=== PATIENT | male | born 1980 | race Caucasian/White ===

== ENCOUNTER 2018-04-04 01:55 | Emergency (ER) | payer MEDICAID ==
[~2018-04-04] VITALS: Ht 182.9 cm; Wt 72.0 kg
[~2018-04-04 01:55] MED LIST: DIPH-186 PO; DIPH-423 PO; IBUP-1986 PO; LOPE-144 PO; NO HOME MEDS; PROM25TA14 PO
[2018-04-04 02:13] VITALS: BP 140/76
[2018-04-04] MEDS ORDERED: LIDOcaine 1.5% w/epinephrine 1:200,000 5ml ampul IJ ONE (02:50)
[2018-04-04] MEDS ORDERED: sulfamethoxazole/trimethoprim DS (800/160mg) tablet PO ONE (02:50)
[2018-04-04] MEDS ORDERED: LIDOcaine 1% w/EPI 1:100,000 30ml vial (MDV) IJ ONE (03:05)
[2018-04-04] MEDS ORDERED: CEPH500C5 PO (03:12)
[2018-04-04] MEDS ORDERED: SULF1TAB49 PO (03:12)
== END 2018-04-04 03:28 | disposition home or self-care (01) ==
LOC: ER 01:56
DX: L02.416 Cutaneous abscess of left lower limb (principal); L03.116 Cellulitis of left lower limb; G43.909 Migraine, unspecified, not intractable, without status migrainosus; G89.29 Other chronic pain; M54.9 Dorsalgia, unspecified; F12.90 Cannabis use, unspecified, uncomplicated; F15.90 Other stimulant use, unspecified, uncomplicated; F11.90 Opioid use, unspecified, uncomplicated; Z56.0 Unemployment, unspecified; Z59.0 Homelessness
CPT/HCPCS: 10060; 99283; J3490

== ENCOUNTER 2020-01-28 01:09 | Emergency (ER) | payer MEDICAID ==
[~2020-01-28] VITALS: Ht 182.9 cm; Wt 88.6 kg
--- NOTE | 2020-01-28 02:13 | NUR ---
pt with 3 weeks of the polyp in his left nosrtil, 1 day of all over body itching , back pain is chronic, and a lump on the left testicle over the past week, with no change in size over the week.
--- NOTE | 2020-01-28 02:44 | NUR ---
PT IN ROOM AWAITING ER MD. ZHANG REPORTS HIS CHRONIC BACK PAIN IS 4 OUT OF 10.
[2020-01-28] MEDS ORDERED: HYDR-3686 PO (03:44)
[2020-01-28] MEDS ORDERED: diphenhydrAMINE 25mg capsule PO ONE (03:45)
[2020-01-28] MEDS ORDERED: acetaminophen 325mg tablet PO ONE (03:45)
[2020-01-28] MEDS ORDERED: ibuprofen tablet 400 MG TABLET PO ONE (03:45)
[2020-01-28 03:52] VITALS: BP 133/87
== END 2020-01-28 03:54 | disposition home or self-care (01) ==
LOC: ER 01:10
DX: L29.9 Pruritus, unspecified (principal); G89.29 Other chronic pain; M54.9 Dorsalgia, unspecified; G43.909 Migraine, unspecified, not intractable, without status migrainosus; F41.9 Anxiety disorder, unspecified; F31.9 Bipolar disorder, unspecified; F20.9 Schizophrenia, unspecified; F17.200 Nicotine dependence, unspecified, uncomplicated; F12.90 Cannabis use, unspecified, uncomplicated; F15.90 Other stimulant use, unspecified, uncomplicated; F11.90 Opioid use, unspecified, uncomplicated; Z59.0 Homelessness; Z56.0 Unemployment, unspecified; Z98.890 Other specified postprocedural states; Z79.899 Other long term (current) drug therapy
CPT/HCPCS: 99284; Q0163

== ENCOUNTER 2020-04-03 12:27 | Emergency (ER) | payer MEDICAID ==
[~2020-04-03] VITALS: Ht 182.9 cm; Wt 72.7 kg
[2020-04-03 12:54] VITALS: BP 127/79
[2020-04-03] MEDS ORDERED: sulfamethoxazole/trimethoprim DS (800/160mg) tablet PO ONE (13:55)
[2020-04-03] MEDS ORDERED: cephalexin 250mg capsule PO ONE (13:55)
[2020-04-03] MEDS ORDERED: SULF1TAB49 PO (14:00)
[2020-04-03] MEDS ORDERED: CEPH-572 PO (14:00)
== END 2020-04-03 14:13 | disposition home or self-care (01) ==
LOC: ER 12:28
DX: L02.419 Cutaneous abscess of limb, unspecified (principal); F11.10 Opioid abuse, uncomplicated; R50.9 Fever, unspecified; G43.909 Migraine, unspecified, not intractable, without status migrainosus; G89.29 Other chronic pain; F41.9 Anxiety disorder, unspecified; F31.9 Bipolar disorder, unspecified; F20.9 Schizophrenia, unspecified; F12.90 Cannabis use, unspecified, uncomplicated; F15.90 Other stimulant use, unspecified, uncomplicated; F11.90 Opioid use, unspecified, uncomplicated; Z86.14 Personal history of Methicillin resistant Staphylococcus aureus infection; Z85.9 Personal history of malignant neoplasm, unspecified; Z98.890 Other specified postprocedural states; Z56.0 Unemployment, unspecified; Z59.0 Homelessness; Z79.2 Long term (current) use of antibiotics; Z79.899 Other long term (current) drug therapy
CPT/HCPCS: 99283

== ENCOUNTER 2020-12-14 03:20 | Emergency (ER) | payer MEDICAID ==
[~2020-12-14] VITALS: Ht 182.9 cm; Wt 68.2 kg
[2020-12-14 03:28] VITALS: BP 121/69
--- NOTE | 2020-12-14 10:23 | NUR ---
Pt NIL for over 5 hours.
== END 2020-12-14 10:25 | disposition left against medical advice (07) ==
LOC: ER 03:21
DX: Z00.8 Encounter for other general examination (principal); Z53.21 Procedure and treatment not carried out due to patient leaving prior to being seen by health care provider

== ENCOUNTER 2020-12-18 09:11 | Emergency (ER) | payer MEDICAID ==
[~2020-12-18] VITALS: Ht 182.9 cm; Wt 65.8 kg
[2020-12-18 09:28] VITALS: BP 118/78
== END 2020-12-18 12:53 | disposition left against medical advice (07) ==
LOC: ER 09:16
DX: Z76.0 Encounter for issue of repeat prescription (principal); Z53.21 Procedure and treatment not carried out due to patient leaving prior to being seen by health care provider

== ENCOUNTER 2021-05-22 10:52 | Emergency (ER) | payer MEDICAID | END 2021-05-22 13:35 | disposition left against medical advice (07) | LOC: ER 10:52 | DX: R07.9 Chest pain, unspecified (principal); Z53.21 Procedure and treatment not carried out due to patient leaving prior to being seen by health care provider | CPT/HCPCS: 93005 ==

== ENCOUNTER 2021-09-12 14:15 | Emergency (ER) | payer MEDICAID ==
[~2021-09-12] VITALS: Ht 182.9 cm; Wt 81.3 kg
[2021-09-12 14:34] VITALS: BP 138/84
[2021-09-12] MEDS ORDERED: SULF1TAB49 PO ×3 (16:26→18:15)
== END 2021-09-12 16:36 | disposition home or self-care (01) ==
LOC: ER 14:15
DX: L02.511 Cutaneous abscess of right hand (principal); L03.011 Cellulitis of right finger; M79.644 Pain in right finger(s); G43.909 Migraine, unspecified, not intractable, without status migrainosus; G89.29 Other chronic pain; F41.9 Anxiety disorder, unspecified; F31.9 Bipolar disorder, unspecified; F20.9 Schizophrenia, unspecified; F12.90 Cannabis use, unspecified, uncomplicated; F15.90 Other stimulant use, unspecified, uncomplicated; F11.90 Opioid use, unspecified, uncomplicated; Z86.14 Personal history of Methicillin resistant Staphylococcus aureus infection; Z85.9 Personal history of malignant neoplasm, unspecified; Z56.0 Unemployment, unspecified; Z59.00 Homelessness unspecified; Z79.2 Long term (current) use of antibiotics; Z79.899 Other long term (current) drug therapy
CPT/HCPCS: 99283

== ENCOUNTER 2022-01-05 16:16 | Emergency (ER) | payer MEDICAID ==
[~2022-01-05] VITALS: Ht 182.9 cm; Wt 68.2 kg
[~2022-01-05 16:16] MED LIST changes: +SULF1TAB49 PO
[2022-01-05 16:31] VITALS: BP 107/69
[2022-01-05] MEDS ORDERED: PRED10TA PO (17:14)
[2022-01-05] MEDS: triamcinolone acetonide 40mg/ml inj IM ONE (17:22)
== END 2022-01-05 17:32 | disposition home or self-care (01) ==
LOC: ER 16:17
DX: L23.7 Allergic contact dermatitis due to plants, except food (principal); G43.909 Migraine, unspecified, not intractable, without status migrainosus; G89.29 Other chronic pain; F41.9 Anxiety disorder, unspecified; F31.9 Bipolar disorder, unspecified; F32.A Depression, unspecified; F20.9 Schizophrenia, unspecified; F12.90 Cannabis use, unspecified, uncomplicated; F15.90 Other stimulant use, unspecified, uncomplicated; F11.90 Opioid use, unspecified, uncomplicated; Z86.14 Personal history of Methicillin resistant Staphylococcus aureus infection; Z98.890 Other specified postprocedural states; Z56.0 Unemployment, unspecified; Z59.00 Homelessness unspecified; Z79.2 Long term (current) use of antibiotics; Z79.899 Other long term (current) drug therapy
CPT/HCPCS: 96372; 99283; J3301

== ENCOUNTER 2022-02-10 21:02 | Emergency (ER) | payer MEDICAID ==
[~2022-02-10] VITALS: Ht 182.9 cm; Wt 75.9 kg
[~2022-02-10 21:02] MED LIST changes: +PRED10TA PO
[2022-02-10 21:35] VITALS: BP 121/65
[2022-02-11] MEDS ORDERED: HYDR7CRE2 TOP (00:30)
== END 2022-02-11 01:00 | disposition home or self-care (01) ==
LOC: ER 21:03
DX: L23.9 Allergic contact dermatitis, unspecified cause (principal); G43.909 Migraine, unspecified, not intractable, without status migrainosus; G89.29 Other chronic pain; M54.59 Other low back pain; F31.9 Bipolar disorder, unspecified; F20.9 Schizophrenia, unspecified; F12.10 Cannabis abuse, uncomplicated; F15.10 Other stimulant abuse, uncomplicated; Z59.00 Homelessness unspecified; Z56.0 Unemployment, unspecified; Z79.899 Other long term (current) drug therapy
CPT/HCPCS: 99283

== ENCOUNTER 2022-05-12 13:21 | Emergency (ER) | payer MEDICAID ==
[~2022-05-12] VITALS: Ht 182.9 cm; Wt 75.0 kg
[~2022-05-12 13:21] MED LIST changes: +HYDR7CRE2 TOP
[2022-05-12 14:20] VITALS: BP 128/85
== END 2022-05-12 15:05 | disposition home or self-care (01) ==
LOC: ER 13:22
DX: R42 Dizziness and giddiness (principal); R55 Syncope and collapse; G43.909 Migraine, unspecified, not intractable, without status migrainosus; G89.29 Other chronic pain; M54.50 Low back pain, unspecified; Z56.0 Unemployment, unspecified; Z59.00 Homelessness unspecified
CPT/HCPCS: 82948; 99284

== ENCOUNTER 2022-05-27 04:37 | Emergency (ER) | payer MEDICAID ==
[~2022-05-27] VITALS: Ht 182.9 cm; Wt 81.8 kg
[2022-05-27 04:47] VITALS: BP 144/83
[2022-05-27] MEDS ORDERED: AMOX500C2 PO (05:25)
== END 2022-05-27 05:43 | disposition home or self-care (01) ==
LOC: ER 04:38
DX: K08.89 Other specified disorders of teeth and supporting structures (principal); G43.909 Migraine, unspecified, not intractable, without status migrainosus; G89.29 Other chronic pain; M54.50 Low back pain, unspecified; F31.9 Bipolar disorder, unspecified; F12.90 Cannabis use, unspecified, uncomplicated; F15.20 Other stimulant dependence, uncomplicated; Z59.00 Homelessness unspecified; Z56.0 Unemployment, unspecified
CPT/HCPCS: 99283

== ENCOUNTER 2022-06-05 12:12 | Emergency (ER) | payer MEDICAID ==
[~2022-06-05] VITALS: Ht 182.9 cm; Wt 70.0 kg
[~2022-06-05 12:12] MED LIST changes: +AMOX500C2 PO
[2022-06-05 12:20] VITALS: BP 161/94
--- NOTE | 2022-06-05 12:37 | NUR ---
PT WAS MOVED IMMEDIATELY AFTER TRIAGE TO [facility] 19 FOR EKG - HE WAS WAITING FOR EKG AND DECIDED TO JUST LEAVE. NO REASON GIVEN. PT AMBULATED OUT OF ER WITHOUT DIFFICULTY.
== END 2022-06-05 12:38 | disposition left against medical advice (07) ==
LOC: ER 12:12
DX: R00.2 Palpitations (principal); Z53.21 Procedure and treatment not carried out due to patient leaving prior to being seen by health care provider

== ENCOUNTER 2022-06-06 12:58 | Emergency (ER) | payer MEDICAID ==
[~2022-06-06] VITALS: Ht 182.9 cm; Wt 71.3 kg
[2022-06-06 13:01] VITALS: BP 138/90
== END 2022-06-06 19:57 | disposition left against medical advice (07) ==
LOC: ER 12:59
DX: F11.20 Opioid dependence, uncomplicated (principal); Z53.21 Procedure and treatment not carried out due to patient leaving prior to being seen by health care provider

== ENCOUNTER 2022-06-24 02:40 | Emergency (ER) | payer MEDICAID ==
[~2022-06-24] VITALS: Ht 182.9 cm; Wt 76.4 kg
[2022-06-24 02:43] VITALS: BP 135/86
== END 2022-06-24 04:11 | disposition left against medical advice (07) ==
LOC: ER 02:41
DX: Z00.00 Encounter for general adult medical examination without abnormal findings (principal); Z53.21 Procedure and treatment not carried out due to patient leaving prior to being seen by health care provider

== ENCOUNTER 2022-10-15 22:26 | Emergency (ER) | payer MEDICAID ==
[~2022-10-15] VITALS: Ht 182.9 cm; Wt 68.4 kg
[~2022-10-15 22:26] MED LIST changes: -AMOX500C2 PO
[2022-10-15 22:28] VITALS: BP 119/72
== END 2022-10-16 00:43 | disposition left against medical advice (07) ==
LOC: ER 22:26
DX: M79.673 Pain in unspecified foot (principal); Z53.21 Procedure and treatment not carried out due to patient leaving prior to being seen by health care provider
CPT/HCPCS: 99281

== ENCOUNTER 2023-02-02 10:45 | Emergency (ER) | payer MEDICAID ==
[~2023-02-02] VITALS: Ht 185.4 cm; Wt 75.5 kg
[2023-02-02 10:56] VITALS: BP 128/83; PULSE 82; RESP 16; TEMP 98; O2SAT 100
--- NOTE | 2023-02-02 11:34 | NUR ---
Met with patient for med clearance. Patient would like to start Suboxone. Patient last used Fentanyl yesterday. Patient is going into [facility]. Talking with MD to start Suboxone. Let's Rec[facility] will continue meds.
[2023-02-02] MEDS ORDERED: BUPR1FIL3 SL (12:07)
== END 2023-02-02 12:45 | disposition home or self-care (01) ==
LOC: ER 10:46
DX: F11.90 Opioid use, unspecified, uncomplicated (principal); G89.29 Other chronic pain; M54.9 Dorsalgia, unspecified; F32.A Depression, unspecified; F20.9 Schizophrenia, unspecified; F17.200 Nicotine dependence, unspecified, uncomplicated; F12.10 Cannabis abuse, uncomplicated; F15.10 Other stimulant abuse, uncomplicated; G43.909 Migraine, unspecified, not intractable, without status migrainosus; Z79.899 Other long term (current) drug therapy
CPT/HCPCS: 99281; 99283